=== PATIENT | female | born 1990 | race Caucasian/White ===

== ENCOUNTER 2018-03-10 04:25 | Emergency (ER) | payer BC, MEDICAID ==
[~2018-03-10] VITALS: Ht 167.6 cm; Wt 68.0 kg
[~2018-03-10 04:25] MED LIST: CLOTRIMAZOLE15 GM TOPIC
[2018-03-10 04:47] VITALS: BP 0/0
--- NOTE | 2018-03-10 04:50 | Emergency Room Report ---
History of Present Illness General Chief Complaint: General Complaint Source: Patient Present Illness HPI Patient presents with complaints of feeling withdrawal from cocaine abuse a she reports that he feels he has used up most of the dopamine receptors Patient reports using cocaine almost on a daily basis for over 2 months Denies any chest pain or shortness of breath denies any back or flank pain Patient reports feeling tired Denies any neck pain or photophobia denies any fevers or chills Denies any homicidal or suicidal thoughts Allergies: Coded Allergies: No Known Allergies (Unverified , 12/16/14) Patient History Past Medical History: see triage record Pertinent Family History: none Reviewed Nursing Documentation: PMH: Agreed; PSxH: Agreed Review of Systems All Other Systems: negative except mentioned in HPI Physical Exam Vital Signs Date Time Temp Pulse Resp B/P (MAP) Pulse Ox O2 Delivery O2 Flow Rate FiO2 03/10/18 04:30 97.4 99 18 112/68 98 Room Air 97.3 Sp02 EP Interpretation: reviewed, normal General Appearance: well appearing, no apparent distress Head: normocephalic, atraumatic Eyes: bilateral eye PERRL, bilateral eye EOMI ENT: normal pharynx, no angioedema Neck: full range of motion, supple Respiratory: lungs clear Cardiovascular #1: regular rate, rhythm Gastrointestinal: non tender, soft Musculoskeletal: normal inspection Neurologic: alert, oriented x3, responsive Psychiatric: mood/affect normal, no suicidal/homicidal ideation Skin: normal color Lymphatic: no adenopathy Medical Decision Making Diagnostic Impression: Primary Impression: drug abuse Additional Impression: cocaine abuse ER Course Patient is a fairly benign medical evaluation Hemodynamically remained stable Patient's cures review reveals multiple medications including Vyvanse, multiple doses of benzodiazepine I discussed with the patient that these medications can have counter effects He needs further discussion with primary physician Patient also does not show any obvious signs of acute withdrawal Given his complaints and presentation I felt referral to appropriate facilities is the most appropriate disposition Patient does not have any homicidal or suicidal thoughts Going to get paperwork to discuss with the patient further And provide further resources Patient had eloped from the emergency room Last Vital Signs Date Time Temp Pulse Resp B/P (MAP) Pulse Ox O2 Delivery O2 Flow Rate FiO2 03/10/18 04:30 97.4 99 18 112/68 98 Room Air 97.3 Status: unchanged Disposition: HOME, SELF-CARE Condition: Stable Patient Instructions: Stimulant Use Disorder-Cocaine, Finding Treatment for Addiction Additional Instructions: You have left prior to being provided appropriate resources and final discussion Julia Sosa DO Mar 10, 2018 04:50
== END 2018-03-10 05:00 | disposition home or self-care (01) ==
LOC: EMR 05:00 → EDSEX 05:00
DX: F14.10 Cocaine abuse, uncomplicated (principal)
CPT/HCPCS: 99283

== ENCOUNTER 2018-04-06 02:16 | Emergency (ER) | payer BC, MEDICAID ==
[~2018-04-06] VITALS: Ht 167.6 cm; Wt 68.0 kg
[2018-04-06] MEDS ORDERED: TRAZODONE HCL150 MG ORAL (02:45)
[2018-04-06] MEDS ORDERED: ABILIFY2 MG ORAL (02:45)
[2018-04-06] MEDS ORDERED: WELLBUTRIN XL150 MG ORAL (02:45)
[2018-04-06] MEDS ORDERED: VALACYCLOVIR500 MG ORAL (02:45)
[2018-04-06] MEDS ORDERED: TRUVADA 200 MG1 EAC1 ORAL (02:45)
[2018-04-06] MEDS ORDERED: VYVANSE20 MG ORAL (02:45)
[2018-04-06] MEDS ORDERED: LORAZEPAM0.5 MG ORAL (02:45)
[2018-04-06] MEDS ORDERED: DOXYCYCLINE MO100 MG ORAL (03:17)
[2018-04-06] MEDS ORDERED: IBUPROFEN600 MG ORAL (03:17)
[2018-04-06] MEDS ORDERED: MUPIROCIN22 GM TOPIC (03:17)
--- NOTE | 2018-04-06 03:18 | Emergency Room Report ---
History of Present Illness General Chief Complaint: Pain Source: Patient Present Illness HPI Is a 28-year-old male with a history of drug abuse in the past. He claimed that he is clean now. He presents with chief complaint of facial pain. He said he has severe anxiety pick at his face. He can't sleep because of the pain. Pain is 10 out of 10. No nausea no vomiting. No fever chills. Denies any other complaint. Allergies: Coded Allergies: No Known Allergies (Unverified , 12/16/14) Patient History Past Medical History: see triage record, old chart reviewed, psych hx Past Surgical History: none Pertinent Family History: none Social History: Reports: drug use Now: No Immunizations: other Reviewed Nursing Documentation: PMH: Agreed; PSxH: Agreed Nursing Documentation-PMH Past Medical History: No Stated History Review of Systems Eye: Denies: eye pain, blurred vision ENT: Denies: ear pain, nose congestion, throat swelling Respiratory: Denies: cough, shortness of breath Cardiovascular: Denies: chest pain, palpitations Gastrointestinal: Denies: abdominal pain, diarrhea, nausea, vomiting Musculoskeletal: Denies: back pain, joint pain Skin: Denies: rash Neurological: Denies: headache, numbness Endocrine: Denies: increased thirst, increased urine Hematologic/Lymphatic: Denies: easy bruising All Other Systems: negative except mentioned in HPI Physical Exam Vital Signs Date Time Temp Pulse Resp B/P (MAP) Pulse Ox O2 Delivery O2 Flow Rate FiO2 04/06/18 02:38 97.9 101 16 120/72 96 Room Air 97.9 vitals normal Sp02 EP Interpretation: reviewed, normal General Appearance: well appearing, no apparent distress, alert Head: normocephalic, atraumatic Eyes: bilateral eye PERRL, bilateral eye EOMI ENT: hearing grossly normal, normal pharynx, other - His face has scab and scarring from chronic picking at it. There is some redness and edema to the left chin and cheek area. No pus. Neck: full range of motion, supple, no meningismus Respiratory: chest non-tender, lungs clear, normal breath sounds Cardiovascular #1: regular rate, rhythm, no murmur Gastrointestinal: normal bowel sounds, non tender, no mass, no organomegaly, no bruit, non-distended Musculoskeletal: back normal, gait/station normal, normal range of motion Psychiatric: mood/affect normal Skin: warm/dry Medical Decision Making Diagnostic Impression: Primary Impression: Anxiety Additional Impressions: Cellulitis of face Drug abuse ER Course Patient with skin picking from probably drug abuse. May be an early cellulitis. We'll put on antibiotics. I am uncomfortable prescribing narcotic or other controlled substances because of his drug abuse history. He denies suicidal or homicidal. No criteria for 5150. Last Vital Signs Date Time Temp Pulse Resp B/P (MAP) Pulse Ox O2 Delivery O2 Flow Rate FiO2 04/06/18 02:38 97.9 101 16 120/72 96 Room Air 97.9 Status: improved Disposition: HOME, SELF-CARE Condition: Stable Scripts Ibuprofen* (MOTRIN*) 600 Mg Tablet 600 MG ORAL THREE TIMES A DAY, #30 TAB 0 Refills Prov: SELENA DE LA CRUZ M.D. 04/06/18 Mupirocin* (MUPIROCIN*) 22 Gm Oint...g. 1 APPLIC TOPIC THREE TIMES A DAY, #22 GM Prov: SELENA DE LA CRUZ M.D. 04/06/18 Doxycycline Monohydrate* (DOXYCYCLINE MONOHYDRATE*) 100 Mg Capsule 100 MG ORAL Q12H, #14 CAP 0 Refills Prov: SELENA DE LA CRUZ M.D. 04/06/18 Additional Instructions: May take Benadryl for anxiety. Follow-up with your doctor in 7 days. Stop using drugs. Return if worse. SELENA DE LA CRUZ M.D. Apr 06, 2018 03:18
[2018-04-06 03:23] VITALS: BP 122/72
[2018-04-06 03:26] VITALS: BP 120/72
== END 2018-04-06 03:26 | disposition home or self-care (01) ==
LOC: EMR 02:55
DX: L03.211 Cellulitis of face (principal); F41.9 Anxiety disorder, unspecified; F19.10 Other psychoactive substance abuse, uncomplicated
CPT/HCPCS: 99284